=== PATIENT | female | born 1995 | race Caucasian/White ===

== ENCOUNTER 2020-03-26 04:19 | Emergency (ER) | payer OTHER ==
--- NOTE | 2020-03-26 05:52 | RADIOLOGY REPORT (SQ) ---
Left knee x-ray four views on 03/26/2020 at 4:41 AM CLINICAL INDICATION: Left knee pain after fall COMPARISON: None FINDINGS: No joint effusion is noted. There are no fractures. Visualized joints are well aligned. No bony abnormality is noted. IMPRESSION: No acute abnormality.
[2020-03-26] MEDS ORDERED: KETOROLAC TROMETHAMINE 60 MG/2 ML SDV IM ONE (06:05)
--- NOTE | 2020-03-26 06:12 | ER Document Report ---
ED Extremity Problem, Lower - General Chief Complaint: Knee Injury Stated Complaint: LEFT KNEE INJURY Time Seen by Provider: 03/26/20 04:59 Primary Care Provider: JACKLYN SAMANIEGO MD [ACTIVE STAFF] - Follow up as needed RASHAD NEW DO [ACTIVE STAFF] - Follow up as needed - HPI Notes: Patient is a 24-year-old female with no medical history who presents with left knee pain that occurred last night. Patient states she was rollerskating when she fell and landed on her left knee. She denies any other injuries or complaints. Patient reports intermittent numbness in her toes. She is able to bear weight but reports pain with ambulation, particularly when she bends her knee. - Related Data Allergies/Adverse Reactions: oxycodone Allergy (Verified 03/26/20 04:34) Penicillins Allergy (Verified 03/26/20 04:34) hydrocodone Adverse Reaction (Verified 03/26/20 04:32) proactive Adverse Reaction (Uncoded 03/26/20 04:34) Home Medications: none Past Medical History - General Information source: Patient - Social History Smoking Status: Current Every Day Smoker Chew tobacco use (# tins/day): No Frequency of alcohol use: None Drug Abuse: None Family History: Reviewed & Not Pertinent Patient has homicidal ideation: No Review of Systems - Review of Systems Constitutional: No symptoms reported EENT: No symptoms reported Cardiovascular: No symptoms reported Respiratory: No symptoms reported Gastrointestinal: No symptoms reported Genitourinary: No symptoms reported Female Genitourinary: No symptoms reported Musculoskeletal: See HPI Skin: No symptoms reported Hematologic/Lymphatic: No symptoms reported Neurological/Psychological: No symptoms reported Physical Exam - Vital signs Vitals: Temp Pulse Resp BP Pulse Ox 98.1 F 95 18 115/86 H 99 03/26/20 04:24 03/26/20 04:24 03/26/20 04:24 03/26/20 04:24 03/26/20 04:24 - Notes Notes: PHYSICAL EXAMINATION: GENERAL: Well-appearing, well-nourished and in no acute distress. HEAD: Atraumatic, normocephalic. EYES: sclera anicteric, conjunctiva are normal. ENT: Moist mucous membranes. NECK: Normal range of motion LUNGS: Normal work of breathing HEART: 2+ radial pulses bilaterally EXTREMITIES: Left knee diffusely tender with limited range of motion secondary to pain. Negative anterior and posterior drawer testing. No valgus or varus instability. 2+ PT and DP pulses. Full range of motion of left ankle and left hip. No pitting or edema. No cyanosis. NEUROLOGICAL: No focal neurological deficits. Moves all extremities spontaneously and on command. PSYCH: Normal mood, normal affect. SKIN: Warm, Dry, normal turgor, no rashes or lesions noted. Course - Re-evaluation Re-evalutation: Patient is a 21-year-old female who presents with left knee pain after falling onto it last night. Vital signs are stable within normal limits. On exam, left knee diffusely tender with limited range of motion secondary to pain. Left knee x-ray is negative with no signs of fracture. 60 mg IM Toradol given for pain relief. Patient placed in a knee brace and given crutches here in the ED. Patient advised to follow-up with orthopedics and referral given. Return precautions and follow-up instructions given. Patient will be discharged home. Patient understands and is in agreement with the plan. - Vital Signs Vital signs: Temp Pulse Resp BP Pulse Ox 97.9 F 74 16 114/76 100 03/26/20 06:36 03/26/20 06:36 03/26/20 06:36 03/26/20 06:36 03/26/20 06:36 - Laboratory Results Critical Laboratory Results Reviewed: No Critical Results - Radiology Results Radiology Results Interpreted: Knee X-Ray 03/26/20 00:00 IMPRESSION: No acute abnormality. Critical Radiology Results Reviewed: No Critical Results Procedures - Immobilization Left Knee Pre-Proc Neuro Vasc Exam: Normal Immobilizer type: Crutches, Knee immobilizer Performed by: RN Post-Proc Neuro Vasc Exam: Normal Discharge - Discharge Clinical Impression: Left knee pain Qualifiers: Chronicity: acute Qualified Code(s): M25.562 - Pain in left knee Condition: Stable Disposition: HOME, SELF-CARE Instructions: Use of Crutches (OM), Knee Immobilizing Splint (OM), Sprained Knee (OM) Referrals: JACKLYN SAMANIEGO MD [ACTIVE STAFF] - Follow up as needed RASHAD NEW DO [ACTIVE STAFF] - Follow up as needed
[2020-03-26 06:38] VITALS: BP 114/76
== END 2020-03-26 06:36 | disposition home or self-care (01) ==
LOC: ER 04:19
DX: M25.562 Pain in left knee (principal); V00.131A Fall from skateboard, initial encounter; Y93.51 Activity, roller skating (inline) and skateboarding; F17.200 Nicotine dependence, unspecified, uncomplicated; Z88.6 Allergy status to analgesic agent; Z88.0 Allergy status to penicillin
CPT/HCPCS: 99284; 96372; 73564; J1885